=== PATIENT | female | born 1985 | race Caucasian/White ===

== ENCOUNTER 2016-03-15 17:37 | Emergency (ER) | payer BC ==
[2016-03-15 17:52] VITALS: BP 128/103; PULSE 90; RESP 18; TEMP 98.4; O2SAT 95
--- NOTE | 2016-03-15 19:02 | EDPHY ---
H & P Time Seen by Provider: 03/15/16 17:45 HPI/ROS: CHIEF COMPLAINT: Left knee laceration HISTORY OF PRESENT ILLNESS: 31-year-old female presents to the emergency department by ambulance with a laceration to her left knee. The patient states she was running and she tripped and fell and hit her left knee. She is not sure which she cut her knee on. She did not hit her head or lose consciousness. She does admit to drinking alcohol today. Denies neck or back pain. Denies chest pain or difficulty breathing. Denies abdominal pain. Denies injury to her upper extremities or to her right lower extremity. She is able to ambulate. She believes her tetanus shot is current. REVIEW OF SYSTEMS: Constitutional: No fever, no chills. Eyes: No double or blurry vision. ENT: No sore throat. Respiratory: No cough, no shortness of breath. Cardiac: No chest pain. Gastrointestinal: No abdominal pain, vomiting or diarrhea. Genitourinary: No dysuria. Musculoskeletal: No neck or back pain. Skin: Left knee laceration. No rashes. Neurological: No headache. Past Medical/Surgical History: Negative Social History: Single Smoking Status: Current every day smoker Physical Exam: General Appearance: Alert, no distress. Smells strongly of alcohol. She is emotional very tearful. She has no physical signs of trauma to her head. Eyes: Pupils equal and round. Extraocular motions are all intact. ENT: Mouth: Mucous membranes moist. No dental injury or malocclusion. Respiratory: No wheezing, rhonchi, or rales, lungs are clear to auscultation. Cardiovascular: Regular rate and rhythm. Gastrointestinal: Abdomen is soft and nontender, no masses, no rebound or guarding, bowel sounds normal. Neurological: Alert and oriented x 3, cranial nerves II through XII grossly intact Skin: 2 cm laceration to the left anterior aspect of the knee. Warm and dry, no rashes. Musculoskeletal: Nontender to palpate along the cervical, thoracic or lumbar spine. Neck is supple. Extremities: Full range of motion and no peripheral edema. Normal gait. No palpable bony tenderness in her left knee. Numerous superficial lacerations noted to the volar aspect of both forearms. Psychiatric: Patient is oriented X 3, there is no agitation. Constitutional: Initial Vital Signs Temperature (C) 36.9 C 03/15/16 17:47 Heart Rate 90 03/15/16 17:47 Respiratory Rate 18 03/15/16 17:47 Blood Pressure 128/103 H 03/15/16 17:47 O2 Sat (%) 95 03/15/16 17:47 O2 Delivery Mode Room Air Allergies/Adverse Reactions: No Known Allergies Allergy (Unverified 07/28/10 20:55) Home Medications: Medication Instructions Recorded Azithromycin [Zpack 250 mg] 250 mg PO DAILY #6 tab 07/28/10 Gabapentin [Neurontin] 600 mg PO DAILY 07/28/10 Hydrocodone Bit/Acetaminophen 1 tab PO Q4-6PRN PRN #15 tab 07/28/10 [Vicodin 5/500] Meclizine HCl [Meclizine HCl 25 mg 25 mg PO BID #10 tab 07/28/10 (RX,OTC)] lamOTRIGine [Lamictal Xr] 150 mg PO DAILY 07/28/10 Medical Decision Making Procedures: Laceration repair. Verbal consent was obtained from the patient. The 2 cm laceration on the left anterior knee was anesthetized using 1% lidocaine with epinephrine. The wound was irrigated with saline, draped and explored to its base with a gloved finger. There were no deep structures involved. No tendon injury was identified. The wound was repaired with 4 0 Ethilon, 5 sutures. The wound repair was simple. The procedure was performed by myself. ED Course/Re-evaluation: 31-year-old female presents with laceration to her left knee, see procedure note. The patient does have numerous superficial lacerations to the volar aspect of both forearms. They do not appear acute from today. The patient states that she is not suicidal. She does not want me to cleansed or dress the wounds on her forearms. The patient tells me that she just wants to go home so she can go to [place] in 2 days to see her niece. The patient does not have a sober ride to transport her back to her apartment in [place]. She will be [facility] to the [facility]. Differential Diagnosis: Including but not limited to laceration, fracture, contusion, alcohol intoxication Departure - Departure Disposition: Home, Routine, Self-Care Clinical Impression: Laceration of left knee Qualifiers: Encounter type: initial encounter Qualifier Code: (S81.012A) Laceration without foreign body, left knee, initial encounter Alcohol intoxication Qualifiers: Complication of substance-induced condition: uncomplicated Qualifier Code: ( F10.120) Alcohol abuse with intoxication, uncomplicated Condition: Good Instructions: Laceration (ED), Care For Your Stitches (ED), Acute Wound Care ( ED), Alcohol Intoxication (ED) Additional Instructions: Wound Care Follow-Up: Removal of sutures in 10 days. Suture removal is complimentary in uncomplicated cases. Infection or abnormal findings would require reevaluation by the MD. In that case, you may be billed. Return if you notice any signs or symptoms of infection such as redness, swelling, increased pain, fever, purulent drainage. Ibuprofen 600 mg every 8 hours as needed for pain. Referrals: [facility] [Outside] - As per Instructions Cachorro Page MD [Medical Doctor] - 2-3 days, if not improved (Primary care provider)
== END 2016-03-15 19:37 | disposition home or self-care (01) ==
LOC: EDUNIT#
PROC: 0HQLXZZ Repair Left Lower Leg Skin, External Approach (ICD-10-PCS; principal; 2016-03-15)
DX: S81.012A Laceration without foreign body, left knee, initial encounter (principal); F17.200 Nicotine dependence, unspecified, uncomplicated; F10.120 Alcohol abuse with intoxication, uncomplicated; W01.198A Fall on same level from slipping, tripping and stumbling with subsequent striking against other object, initial encounter; Y93.02 Activity, running